=== PATIENT | female | born 1955 | race Caucasian/White ===

== ENCOUNTER 2018-05-08 03:56 | Emergency (ER) | payer OTHER ==
[~2018-05-08] VITALS: Ht 167.6 cm; Wt 181.0 kg
[2018-05-08 04:03] VITALS: BP 162/69
[2018-05-08] MEDS ORDERED: RIVA10TA PO (04:15)
[2018-05-08] MEDS ORDERED: INSU100I13 SQ (04:15)
[2018-05-08] MEDS ORDERED: TRAZ50TA18 PO (04:15)
[2018-05-08] MEDS ORDERED: CYCL5TAB PO (04:15)
[2018-05-08] MEDS ORDERED: DOCU100C28 PO (04:15)
[2018-05-08] MEDS ORDERED: ALBU8.5H7 IH (04:15)
[2018-05-08] MEDS ORDERED: OXYC-470 PO (04:15)
[2018-05-08] MEDS ORDERED: GABA100C7 PO (04:15)
[2018-05-08] MEDS ORDERED: MUPI22OI2 TP (04:15)
[2018-05-08] MEDS ORDERED: ONDA4TAB12 PO (04:15)
[2018-05-08] MEDS ORDERED: DUONEB 0.5 MG-3 MG/3 ML SOLN IH STA (04:32)
--- NOTE | 2018-05-08 04:39 | NUR ---
XRAY CALL TO FIELD ARTILLERY OFFICER GUILLERMO BELCHER, AT THIS TIME.
--- NOTE | 2018-05-08 04:40 | PCM.EKG ---
[facility] Test Date: 2018-05-08 Test Time: 04:42:35 Pat Name: MARIELOS SANDOVAL Department: Patient ID: [facility]-[id number] Room: Gender: F Endoscopy Support Specialist: KAYLYNN : 1955 Requested By: AINSLEY PENA Order Number: [id number] Reading MD: Ainsley Pena Measurements Intervals [place] Rate: 89 P: 74 UT: 128 QRS: 50 QRSD: 114 T: 58 QT: 384 QTc: 467 Interpretive Statements Sinus rhythm Low voltage QRS Borderline ECG No previous ECG available for comparison Electronically Signed On 05-08-2018 6:41:56 CDT by Ainsley Pena Please click the below link to view image of tracing.
--- NOTE | 2018-05-08 04:41 | ER.PDOC ---
General Chief Complaint: Trauma Stated Complaint: FALL Time seen by MD: 04:15 Source: patient, family, EMS Exam Limitations: no limitations History of Present Illness Initial Comments Pt was brought by ambulance due to fall in bathroom, pt had recent left knee replacement on Monday in [facility], began yesterday showing more signs of SOB, confusion, decreased O2 Sats, low grade fever Timing/Duration: 24 hours Severity: severe Activities at Onset: none Prior Episodes/Possible Cause: occasional episodes Modifying Factors: improves with activity, improves with albuterol inhaler Prior symptoms/Treatment: Recenly Seen, Treated by Doctor, Recently Hospitalized Allergies: Coded Allergies: No Known Allergies (Unverified , 05/08/18) Home Meds Reported Medications Insulin Glargine,Hum.rec.anlog (LANTUS SOLOSTAR) 100 Unit/1 Ml Insuln.pen, 100 UNIT SQ DAILY24 05/08/18 Albuterol Sulfate (PROAIR HFA) 8.5 Gm Hfa.aer.ad, 8.5 GM IH Q6HR 05/08/18 Mupirocin (MUPIROCIN) 22 Gm Oint...g., 22 GM TP BID 05/08/18 Trazodone Hcl (TRAZODONE HCL) 50 Mg Tablet, 50 MG PO HS, TABLET 05/08/18 Rivaroxaban (XARELTO) 10 Mg Tablet, 10 MG PO DAILY24 for 15 Days, TABLET 05/08/18 Gabapentin (GABAPENTIN) 100 Mg Capsule, 100 MG PO TID for 30 Days, CAPSULE 05/08/18 Oxycodone Hcl (OXYCODONE HCL) 5 Mg Tablet, 5 MG PO Q6HR, TABLET 05/08/18 Ondansetron Hcl (ONDANSETRON HCL) 4 Mg Tablet, 4 MG PO Q4, TABLET 05/08/18 Docusate Sodium (DOCUSATE SODIUM) 100 Mg Capsule, 100 MG PO BID for 7 Days, CAPSULE 05/08/18 Cyclobenzaprine Hcl (FLEXERIL) 5 Mg Tablet, 5 MG PO Q8HR, TABLET 05/08/18 Past Medical History Medical History: congestive heart failure, diabetes, hypertension, renal disease Surgical History: hysterectomy, knee LMP (females 10-50): hysterectomy Social History Smoking: non-smoker Alcohol Use: none Drug Use: none Review of Systems Constitutional: malaise, weakness EENTM: no symptoms reported Respiratory: shortness of breath Cardiovascular: no symptoms reported, syncope Gastrointestinal: no symptoms reported Genitourinary: no symptoms reported Musculoskeletal: see HPI Skin: other (cyanosis) Psychiatric/Neurological: no symptoms reported Endocrine: no symptoms reported Hematologic/Lymphatic: no symptoms reported Physical Exam General Appearance: Lethargic, Mild Distress HEENT: PERRL/EOMI, Normal ENT Inspection, TMs Normal, Pharynx Normal Neck: Non-Tender, Full Range of Motion, Supple, Normal Inspection Respiratory: respiratory distress (mild), decreased breath sounds Cardiovascular: Regular Rate, Rhythm, Tachycardia Gastrointestinal: Normal Bowel Sounds, No Organomegaly, No Pulsatile Mass, Non Tender, Soft Extremities: Pedal Edema (mild) Neurologic/Psychiatric: solutions architect consultant II-XII NML as Tested, No Motor/Sensory Deficits Skin: Cyanosis Lymphatic: No Adenopathy Results/Orders Results/Orders Laboratory Tests Test 05/08/18 04:45 05/08/18 04:51 Blood Gas Sample Site LEFT RADIAL ARTERY Blood Gas pH 7.441 (7.350-7.450) Blood Gas PCO2 42.2 mmHg (35.0-45.0) Blood Gas PO2 72.3 mmHg (75.0-100.0) Blood Gas HCO3 28.1 mmol/L (22.0-26.0) Blood Gas Base Excess 3.6 mmol/L (-2.0-2.0) Abel Test POSITIVE Arterial Blood Oxygen Saturation 93.8 % (95-) Deoxyhemoglobin 6.1 % (0.2-0.6) Carboxyhemoglobin 1.7 % (0.5-1.5) Methemoglobin 0.3 % (0.2-0.6) Total Hemoglobin 11.3 % (13.5-17.5) Total Oxygen Concentration 14.7 % (13.5-17.5) Lactic Acid (Blood Gas) 1.5 MMOL/L (0.5-1.0) Oxygen Delivery Method (LAB) NASAL CANNULA FiO2 32 % (20-101) Bicarbonate 29.4 mmol/L (23-27) White Blood Count 14.1 10^3/uL (4.5-11.0) Red Blood Count 3.37 10^6/uL (4.00-5.20) Hemoglobin 10.4 g/dL (12.0-15.0) Hematocrit 33.6 % (36.0-46.0) Mean Corpuscular Volume 99.7 fL (78-100) Mean Corpuscular Hemoglobin 30.9 pg (26-34) Mean Corpuscular Hemoglobin Concent 31.0 g/dL (33-37) Red Cell Distribution Width 13.3 % (11.5-14.5) Platelet Count 320 10^3/uL (150-400) Mean Platelet Volume 10.4 fL (7.8-11.0) Neutrophils (%) (Auto) 75.1 % (41.0-85.0) Lymphocytes (%) (Auto) 7.6 % (24.0-44.0) Monocytes (%) (Auto) 14.5 % (5.0-12.0) Neutrophils # (Auto) 10.6 10^3/uL (1.8-7.7) Lymphocytes # (Auto) 1.1 10^3/uL (1.0-4.8) Monocytes # (Auto) 2.1 10^3/uL (0.3-0.8) Absolute Immature Granulocyte (auto 0.14 10^3 u/L (0-2) Eosinophils % 1.7 % (0.0-5.0) Basophils % 0.1 % (0.0-0.2) Basophils # 0.0 10^3/uL (0.0-0.1) Eosinophil Count 0.2 10^3/uL (0.0-0.2) D-Dimer 5.94 mg/L (0.19-0.49) Sodium Level 140 mmol/L (132-145) Potassium Level 4.8 mmol/L (3.6-5.2) Chloride Level 104.0 mmol/L (96-109) Carbon Dioxide Level 28.2 mmol/L (20.0-32) Anion Gap 12.6 Blood Urea Nitrogen 34 mg/dL (7-18) Creatinine 1.63 mg/dL (0.59-1.40) Estimated GFR () 38.4 (>/=60) BUN/Creatinine Ratio 20.0 Glucose Level 150 mg/dL (70-110) Calcium Level 9.6 mg/dL (8.4-10.5) Total Bilirubin 0.6 mg/dL (0.2-1.0) Aspartate Amino Transf (AST/SGOT) 21 U/L (0-35) Alanine Aminotransferase (ALT/SGPT) 19 U/L (12-78) Alkaline Phosphatase 56 U/L (50-136) Total Creatine Kinase 193 U/L (26-192) Creatine Kinase MB 1.5 ng/mL (0.5-3.6) Troponin I 0.07 ng/mL (0.00-0.05) Pro-B-Type Natriuretic Peptide 1293 pg/mL (0-125) Total Protein 6.3 g/dL (6.4-8.2) Albumin 1.9 g/dL (3.4-5.0) Globulin 4.4 Percent Immature Gran (Cell Imm) 1.00 % (0.00-0.50) Administered Medications Medications (Trade) Dose Ordered Sig/Eric Route PRN Reason Start Time Stop Time Status Last Admin Dose Admin Albuterol/ Ipratropium (Duoneb 0.5 Mg-3 Mg/3 ml Soln) 3 ml STAT STAT IH 05/08/18 04:32 05/08/18 04:35 DC 05/08/18 05:00 Dexamethasone Sodium Phosphate (Decadron) 4 mg STAT STAT IH 05/08/18 04:59 05/08/18 05:00 DC 05/08/18 05:00 Departure Time of Disposition: 05:49 Disposition: 02 XFER SHT-TRM HOSP Impression: Primary Impression: Non-STEMI (non-ST elevated myocardial infarction) Additional Impressions: Pulmonary embolism Pulmonary infiltrates Congestive heart failure (CHF) Kidney failure Condition: Stable Referrals: UNDEFINED,PHYSICIAN (PCP) PRIMARY CARE PROVIDER Duration or Time Spent with Pa: 25 Problem Qualifiers AINSLEY JENSEN MD May 08, 2018 04:41
[2018-05-08 04:55] LABS: ABG PCO2 42.2 mmHg (35.0-45.0); ABG PH 7.441 (7.350-7.450); BE(B) 3.6 mmol/L (-2.0-2.0); HCO3act 28.1 mmol/L (22.0-26.0); pO2 72.3 mmHg (75.0-100.0)
[2018-05-08] MEDS ORDERED: DECADRON ONE (04:56)
[2018-05-08] MEDS ORDERED: DUONEB 0.5 MG-3 MG/3 ML SOLN IH ONE (04:56)
[2018-05-08] MEDS ORDERED: DECADRON IH STA (04:59)
[2018-05-08 05:01] LABS: BASOPHIL % 0.1 % (0.0-0.2); EOSINOPHIL # 0.2 10^3/uL (0.0-0.2); EOSINOPHIL % 1.7 % (0.0-5.0); HEMOGLOBIN 10.4 g/dL (12.0-15.0); LYMPHOCYTES # 1.1 10^3/uL (1.0-4.8); LYMPHOCYTES % 7.6 % (24.0-44.0); MEAN CELL HGB 30.9 pg (26-34); MEAN CORP VOLUME 99.7 fL (78-100); MEAN PLATELET VOLUME 10.4 fL (7.8-11.0); MONOCYTES # 2.1 10^3/uL (0.3-0.8); MONOCYTES % 14.5 % (5.0-12.0); NEUTROPHIL # 10.6 10^3/uL (1.8-7.7); NEUTROPHILS % 75.1 % (41.0-85.0); RED CELL DISTRIBUTION WIDTH 13.3 % (11.5-14.5); WHITE BLOOD CELL 14.1 10^3/uL (4.5-11.0)
[2018-05-08 05:26] LABS: CALCIUM 9.6 mg/dL (8.4-10.5); CARBON DIOXIDE 28.2 mmol/L (20.0-32)
--- NOTE | 2018-05-08 05:43 | DIREP ---
PROCEDURE:CHEST 1 VIEW COMPARISON:None. INDICATIONS:sob FINDINGS: LUNGS/PLEURA:Dense alveolar infiltrates in the mid and lower lung [place] bilaterally consistent with congestive heart failure or pneumonia or both. VASCULATURE:Normal. Unremarkable pulmonary vasculature. CARDIAC:Normal. No cardiac silhouette abnormality or cardiomegaly. MEDIASTINUM:Normal. No visible mass or adenopathy. BONES:Normal. No fracture or visible bony lesion. OTHER:Postop changes in the lower cervical spine with metallic plate and screws. CONCLUSION: 1. Dense alveolar infiltrates in the mid and lower lung [place] consistent with congestive heart failure, pneumonia, or both. Dictated by: Martell Mukherjee M.D. on 05/08/2018 at 05:40 AM
[2018-05-08 05:51] LABS: BASOPHIL 1 % (0-2); EOSINOPHIL 2 % (1-4); LYMPHOCYTE 10 % (25-36); MONOCYTE 16 % (3-9); SEGMENTED NEUTROPHILS 71 % (31-76)
[2018-05-08 05:55] VITALS: BP 116/57
[2018-05-08] MEDS ORDERED: NS 100ML 100 ML IV ONE (05:58)
[2018-05-08] MEDS ORDERED: ZOSYN 3.375 GRAM VIAL IV ONE (05:58)
--- NOTE | 2018-05-08 06:10 | NUR ---
ZOSYN PER VERBAL ORDER FROM DR. JENSEN ZOSYN 3.375MG STARTED AT THIS TIME.
--- NOTE | 2018-05-08 06:37 | NUR ---
REPORT CALLED TO [facility]
[2018-05-08 07:01] VITALS: BP 145/65
--- NOTE | 2018-05-08 07:04 | NUR ---
JESS MERCADO IN AT THIS TIME.
== END 2018-05-08 07:05 | disposition short-term general hospital (02) ==
LOC: ER 03:56 → EDBD 03:56 → ER 07:05
DX: I21.4 Non-ST elevation (NSTEMI) myocardial infarction (principal); I50.9 Heart failure, unspecified; I11.0 Hypertensive heart disease with heart failure; E11.9 Type 2 diabetes mellitus without complications; N19 Unspecified kidney failure; I26.99 Other pulmonary embolism without acute cor pulmonale; Z79.4 Long term (current) use of insulin; Z90.710 Acquired absence of both cervix and uterus; Z96.652 Presence of left artificial knee joint
CPT/HCPCS: 36415; 36600; 71045; 80053; 82550; 82553; 82803; 83880; 84484; 85025; 85379; 87040 ×2; 93005; 94640; 99285; J1100; J2543; J7050; J7620

== ENCOUNTER → 2022-11-17 | Outpatient (CLI) | payer MEDICARE ==
[~2022-11-17] MED LIST: ALBU8.5H7 IH; CYCL5TAB PO; DOCU100C28 PO; GABA100C7 PO; INSU100I13 SQ; MUPI22OI2 TP; ONDA-87 PO; OXYC5TAB2 PO; RIVA10TA PO; TRAZ-163 PO
[2022-11-17 19:43] LABS: MEAN CORP HGB 30.8 pg (26-34); RED CELL DISTRIBUTION WIDTH 12.7 % (11.5-14.5)
[2022-11-17 19:54] LABS: BILIRUBIN,URINE NEGATIVE (NEGATIVE); UROBILINOGEN,URINE 0.2 E.U./dL (0.2)
[2022-11-17 19:57] LABS: CARBON DIOXIDE 29.7 mmol/L (20.0-32)
== END | disposition home or self-care (01) ==
LOC: LAB 19:19
PROVIDERS: ATTEND Internal Medicine Nephrology
DX: E11.22 Type 2 diabetes mellitus with diabetic chronic kidney disease (principal); N18.32 Chronic kidney disease, stage 3b; E11.21 Type 2 diabetes mellitus with diabetic nephropathy; R82.90 Unspecified abnormal findings in urine; Z79.899 Other long term (current) drug therapy
CPT/HCPCS: 36415; 80069; 81001; 82570; 83036; 83735; 83970; 84156; 85027; 87086